=== PATIENT | male | born 1960 | race Caucasian/White ===

== ENCOUNTER 2018-01-14 20:33 | Emergency (ER) | payer OTHER ==
--- NOTE | 2018-01-14 21:06 | EDM.PDOC ---
ED HPI GENERAL MEDICAL PROBLEM - General Chief Complaint: Back Pain or Injury Stated Complaint: BACK PAIN/ PASSED OUT Time Seen by Provider: 01/14/18 20:35 Source of Information: Reports: Patient, Family History Limitations: Reports: No Limitations - History of Present Illness INITIAL COMMENTS - FREE TEXT/NARRATIVE: 57-year-old male who had a very intense left lower back pain while driving [place] from the [place], he took 3 Advil and was going to get out of the car to walk around but before he could he became very lightheaded and diaphoretic and fainted. He now feels much better but he still lightheaded and woozy. He's been up for almost 24 hours. He is otherwise healthy. No palpitations, chest pain, headache, double or blurred vision, shortness of breath, vomiting or diarrhea. He does have some persistent nausea. Onset: Sudden Duration: Week(s): (Back pain is been bothering him for 2 weeks, syncopal episode was sudden one hour ago) Associated Symptoms: Reports: Malaise, Other (Lightheaded, dizzy). Denies: Confusion, Chest Pain, Fever/Chills, Headaches, Shortness of Breath, Weakness right sided back pain Pain Score (Numeric/FACES): 7 - Related Data Allergies Allergy/AdvReac Type Severity Reaction Status Date / Time No Known Allergies Allergy Verified 01/14/18 20:42 Home Meds: Home Meds NK [No Known Home Meds] 01/14/18 [History] Past Medical History HEENT History: Reports: None Gastrointestinal History: Reports: GERD Oncologic (Cancer) History: Reports: Basal Cell Carcinoma - Infectious Disease History Infectious Disease History: Reports: Chicken Pox - Past Surgical History GI Surgical History: Reports: Colonoscopy Social & Family History - Tobacco Use Smoking Status *Q: Never Smoker - Caffeine Use Caffeine Use: Reports: Coffee, Soda - Recreational Drug Use Recreational Drug Use: No ED ROS GENERAL - Review of Systems Review Of Systems: See Below Constitutional: Denies: Fever, Chills HEENT: Reports: No Symptoms Respiratory: Denies: Shortness of Breath, Cough Cardiovascular: Denies: Chest Pain GI/Abdominal: Reports: Nausea. Denies: Abdominal Pain, Vomiting : Reports: No Symptoms Musculoskeletal: Reports: Back Pain Skin: Reports: Pallor, Diaphoresis Neurological: Reports: Syncope, Weakness Psychiatric: Reports: No Symptoms ED EXAM, GENERAL - Physical Exam Exam: See Below Exam Limited By: No Limitations General Appearance: Alert, No Apparent Distress Eye Exam: Bilateral Eye: Normal Inspection Head: Atraumatic, Normocephalic Respiratory/Chest: No Respiratory Distress, Lungs Clear Cardiovascular: Regular Rate, Rhythm. No: Extra Beats GI/Abdominal: Soft, Non-Tender Extremities: Normal Inspection. No: Pedal Edema Neurological: Alert, Oriented, No Motor/Sensory Deficits Psychiatric: Normal Affect, Normal Mood Skin Exam: Warm, Dry Course - Vital Signs Last Recorded V/S: Last Vital Signs Temp 96.5 F 01/14/18 20:39 Pulse 61 01/14/18 21:40 Resp 15 01/14/18 21:50 BP 124/88 01/14/18 21:50 Pulse Ox 98 01/14/18 21:50 - Orders/Labs/Meds Labs: Laboratory Tests 01/14/18 01/14/18 Range/Units 21:18 21:18 WBC 15.2 H (4.5-11.0) K/uL RBC 4.84 (4.30-5.90) M/uL Hgb 14.6 (12.0-15.0) g/dL Hct 42.5 (40.0-54.0) % MCV 88 (80-98) fL MCH 30 (27-31) pg MCHC 34 (32-36) % Plt Count 199 (150-400) K/uL Neut % (Auto) 83 H (36-66) % Lymph % (Auto) 10 L (24-44) % [place] % (Auto) 6 (2-6) % Eos % (Auto) 1 L (2-4) % Baso % (Auto) 0 (0-1) % Sodium 140 (140-148) mmol/L Potassium 3.7 (3.6-5.2) mmol/L Chloride 104 (100-108) mmol/L Carbon Dioxide 27 (21-32) mmol/L Anion Gap 9.2 (5.0-14.0) mmol/L BUN 23 H (7-18) mg/dL Creatinine 1.3 (0.8-1.3) mg/dL Est Cr Clr Drug Dosing 78.82 mL/min Estimated GFR (MDRD) 57 L (>60) Glucose 105 (74-106) mg/dL Calcium 8.3 L (8.5-10.1) mg/dL Total Bilirubin 0.4 (0.2-1.0) mg/dL AST 18 (15-37) U/L ALT 26 (12-78) U/L Alkaline Phosphatase 90 (46-116) U/L Troponin I < 0.017 (0.000-0.056) ng/mL Total Protein 7.5 (6.4-8.2) g/dL Albumin 3.8 (3.4-5.0) g/dL Globulin 3.7 H (2.3-3.5) g/dL Albumin/Globulin Ratio 1.0 L (1.2-2.2) Meds: Medications Discontinued Medications Generic Name Dose Route Start Last Admin Trade Name Freq PRN Reason Stop Dose Admin Ondansetron HCl 4 mg 01/14/18 21:57 01/14/18 22:02 Zofran Odt PO 01/14/18 21:58 4 mg ONETIME ONE Administration - Re-Assessments/Exams Free Text/Narrative Re-Assessment/Exam: 01/14/18 21:05 Patient is on cardiac monitoring, shows a normal sinus rhythm, normal blood pressure and normal O2 saturations. He likely had a vasovagal episode from the intense low back pain although his nausea and dizziness is more persistent than would be expected. A CBC and CMP will be obtained and he'll be kept on cardiac monitoring. 01/14/18 21:52 White count and BUN was slightly elevated, only abnormalities on the chemistry profile and CBC. Patient was encouraged to stay hydrated, continue with anti- inflammatories for his back pain and return as needed. He remained in a normal sinus rhythm with stable vitals while in the emergency room. 01/14/18 22:02 Prior to discharge patient complained of some mild nausea so was given one sublingual Zofran and an Instymed for 5 additional doses. Departure - Departure Time of Disposition: 22:09 Disposition: Home, Self-Care 01 Condition: Good Clinical Impression: Syncope, vasovagal - Discharge Information Instructions: Vasovagal Syncope, Adult Referrals: PCP,None [Primary Care Provider] - Forms: ED Department Discharge Care Plan Goals: Stay hydrated, get rest tonight and increase activity as tolerated. A regular dose of ibuprofen should help your back, return anytime if worsening or concerns.
[2018-01-14] MEDS ORDERED: Ondansetron 4 MG Tab.DIS PO ONE (21:57)
== END 2018-01-14 22:09 | disposition home or self-care (01) ==
LOC: JP.ED 20:33
DX: R55 Syncope and collapse (principal)
CPT/HCPCS: 36415; 80053; 84484; 85025; 99284; A9270